=== PATIENT | male | born 1990 | race African-American/Black ===

== ENCOUNTER 2017-11-25 22:48 | Emergency (ER) | payer SELFPAY ==
[~2017-11-25] VITALS: Ht 165.1 cm; Wt 60.3 kg
[2017-11-25 22:55] VITALS: Ht 165.1 cm; Wt 60.3 kg
[2017-11-25 23:46] VITALS: BP 116/66
== END 2017-11-25 23:50 | disposition home or self-care (01) ==
LOC: ED 22:48
DX: R09.1 Pleurisy (principal); J45.909 Unspecified asthma, uncomplicated